=== PATIENT | male | born 2005 | race Two or more races ===

== ENCOUNTER 2024-12-26 02:09 | Emergency (ER) | payer BC ==
[~2024-12-26] VITALS: Ht 167.6 cm; Wt 68.0 kg
[2024-12-26] MEDS ORDERED: KETOROLAC TROMETHAMINE 10 MG TABLET PO ONE ×2 (03:29→03:45)
[2024-12-26] MEDS ORDERED: KETO10TA2 PO ×2 (04:55→04:56)
[2024-12-26] MEDS ORDERED: CEPHALEXIN500 MG PO (04:55)
== END 2024-12-26 05:07 ==
LOC: ER 02:12
DX: S01.81XA Laceration without foreign body of other part of head, initial encounter (principal); W19.XXXA Unspecified fall, initial encounter; Y93.I9 Activity, other involving external motion; Y92.89 Other specified places as the place of occurrence of the external cause; Y99.8 Other external cause status